=== PATIENT | male | born 1985 | race Caucasian/White ===

== ENCOUNTER 2017-09-05 10:50 | Emergency (ER) | payer OTHER ==
[2017-09-05] MEDS: TETRACAINE 0.5% OPHTH SOLN 4ML OS (13:09)
[2017-09-05] MEDS: FLUORESCEIN OPHTH 1 MG STRIP OS (13:09)
== END 2017-09-05 13:52 | disposition home or self-care (01) ==
LOC: M ED 10:50
DX: T15.02XA Foreign body in cornea, left eye, initial encounter (principal); Y92.099 Unspecified place in other non-institutional residence as the place of occurrence of the external cause; Y93.9 Activity, unspecified
CPT/HCPCS: 99283